=== PATIENT | female | born 1950 | race Caucasian/White ===

== ENCOUNTER 2023-10-26 08:26 | Emergency (ER) | payer MEDICARE ==
[2023-10-26] MEDS ORDERED: predniSONE 20 MG TAB ONE (09:09)
== END 2023-10-26 09:12 | disposition home or self-care (01) ==
LOC: NAV ERS 08:26
DX: M54.32 Sciatica, left side (principal); I10 Essential (primary) hypertension; Z79.899 Other long term (current) drug therapy; Z86.718 Personal history of other venous thrombosis and embolism; X50.3XXA Overexertion from repetitive movements, initial encounter; Y93.E5 Activity, floor mopping and cleaning
CPT/HCPCS: 99283; J7512